=== PATIENT | female | born 1990 | race Caucasian/White ===

== ENCOUNTER 2017-03-23 11:08 | Emergency (ER) | payer OTHER ==
[~2017-03-23] VITALS: Ht 165.1 cm; Wt 87.3 kg
[~2017-03-23 11:08] MED LIST: ALBUTEROL SULF8.5 GM IH; ALLERGY MED; AURALGAN14.8 ML RIGHT EAR; BACTRIM,SEPT1 TABLET PO; CIPRO HC OTIC S10 ML RIGHT EAR; CYCLOBENZAPRINE10 MG PO; DIAZEPAM5 MG PO; DIFLUCAN100 MG PO; ENDOCET 5-3251 EACH; FLEXERIL10 MG PO; IBUPROFEN800 MG PO; KEFLEX500 MG PO; LEVOTHYROXINE25 MCG PO; LORTAB 5-500 T1 EACH PO; MACROBID100 MG PO; MOBIC15 MG PO; MOTRIN800 MG PO; MYCOSTATIN 100,60 ML PO; Motrin PO; NOHOMEMEDS; PERCOCET 5/31 TABLET PO; PREDNISONE20 MG PO; PROVENTIL,2.5 MG/3 M IH; ROXICET,PERCOCET5 ML PO; SYNTHROID50 MCG PO; TRAMADOL HCL50 MG PO; ULTRAM50 MG PO; VALIUM5 MG PO; VICODIN,LORT1 TABLET PO; ZITHROMAX500 MG PO; ZOFRAN ODT4 MG PO; ZOFRAN4 MG PO; ZYRTEC10 M2 PO
[2017-03-23 12:01] LABS: HEMATOCRIT 42.7 % (36.0-46.0); MCHC 34.2 G/DL (30.0-36.0); MCV 87.7 FL (83-99); MEAN PLAT.VOLUME 9.2 uM^3 (9.5-12.4); PLATELET COUNT 253 K/uL (156-360); RBC DIS.WIDTH-CV 12.3 % (11.8-14.6); RBC DIS.WIDTH-SD 39.5 % (39-53); RED BLOOD COUNT 4.87 M/uL (3.80-5.20); WHITE BLOOD COUNT 6.3 K/uL (4.1-10.2)
[2017-03-23 12:14] LABS: CHLORIDE 108 mEq/L (99-109); POTASSIUM 4.4 mEq/L (3.7-5.4); SODIUM 141 mEq/L (136-147)
[2017-03-23 12:17] LABS: GLUCOSE 92 mg/dL (70-99)
[2017-03-23 12:18] LABS: ANION GAP 11 MEQ/L (2-14); TOTAL BILIRUBIN 1.6 mg/dL (0.0-1.0)
[2017-03-23 12:20] LABS: ALKALINE PHOSPHATASE 87 IU/L (3-129); GFR ESTIMATE (CALCULATED) > 59 mL/min/
[2017-03-23 12:21] LABS: UREA NITROGEN (BUN) 12 mg/dL (9-23)
[2017-03-23 12:31] LABS: QUANTITATIVE HCG < 4.0 MIU/ML
[2017-03-23 12:53] LABS: LIPASE 14 U/L (1.0-51.0)
[2017-03-23 13:18] LABS: ADD MIUA? YES; BILIRUBIN NEGATIVE; BLOOD NEGATIVE; COLOR YELLOW ((YELLOW)); GLUCOSE (STRIP) NEGATIVE; KETONES 5; LEUKOCYTES SMALL; NITRITE NEGATIVE; PROTEIN (STRIP) NEGATIVE; UROBILINOGEN 0.2 MG/DL (0.2-1.0)
[2017-03-23 13:21] LABS: BACTERIA RARE /HPF; EPITHELIAL CELLS RARE /HPF; MUCUS TRACE /LPF; RED BLOOD CELLS 0-5 /HPF (0-5); UCUL ADDED? NO; WHITE BLOOD CELLS 0-5 /HPF (0-5)
[2017-03-23] MEDS ORDERED: ZOFRAN ODT4 MG PO (13:53)
[2017-03-23] MEDS ORDERED: BENTYL10 MG PO (13:53)
[2017-03-23 14:13] VITALS: BP 122/68
== END 2017-03-23 14:16 | disposition home or self-care (01) ==
LOC: EME 11:08
DX: R11.2 Nausea with vomiting, unspecified (principal); N89.8 Other specified noninflammatory disorders of vagina; E03.9 Hypothyroidism, unspecified; F17.200 Nicotine dependence, unspecified, uncomplicated
CPT/HCPCS: 80053; 81003; 83690; 84702; 85027; 99281; 99284

== ENCOUNTER 2017-12-20 06:41 | Day surgery (SDC) | payer OTHER ==
[~2017-12-20] VITALS: Ht 165.1 cm; Wt 78.0 kg
[~2017-12-20 06:41] MED LIST changes: +ADVIL,NUPRIN,M200 MG PO; +BENTYL10 MG PO; +MIRENA1 EACH IY; +SYMBICORT60 INHALAT IH; +TYLENOL EXTRA500 MG PO
[2017-12-20 07:43] VITALS: BP 88/49
[2017-12-20] MEDS ORDERED: ENDOCET 5-3251 EACH PO (09:06)
[2017-12-20 10:30] VITALS: BP 92/53
== END 2017-12-20 10:54 | disposition home or self-care (01) ==
LOC: SDC 06:41
DX: D06.7 Carcinoma in situ of other parts of cervix (principal); Z30.433 Encounter for removal and reinsertion of intrauterine contraceptive device; E03.9 Hypothyroidism, unspecified; F17.210 Nicotine dependence, cigarettes, uncomplicated
CPT/HCPCS: 88305; 88307; J0131; J0461; J1170; J1885; J2250; J2405; J3010

== ENCOUNTER 2018-01-01 19:56 | Emergency (ER) | payer OTHER ==
[~2018-01-01] VITALS: Ht 165.1 cm; Wt 80.8 kg
[~2018-01-01 19:56] MED LIST changes: +ENDOCET 5-3251 EACH PO
[2018-01-01 21:07] LABS: APPEARANCE CLOUDY ((CLEAR)); BILIRUBIN NEGATIVE; BLOOD LARGE; COLOR AMBER ((YELLOW)); GLUCOSE (STRIP) NEGATIVE; KETONES NEGATIVE; LEUKOCYTES MODERATE; NITRITE NEGATIVE; PROTEIN (STRIP) 30; SPECIFIC GRAVITY 1.033 (1.000-1.030)
[2018-01-01 21:12] LABS: HEMATOCRIT 42.2 % (36.0-46.0); HEMOGLOBIN 14.4 G/DL (11.9-15.5); MCH 30.8 PG (29.0-34.0); MCHC 34.1 G/DL (30.0-36.0); MCV 90.4 FL (83-99); PLATELET COUNT 279 K/uL (156-360); RBC DIS.WIDTH-CV 12.7 % (11.8-14.6); RBC DIS.WIDTH-SD 41.7 % (39-53); RED BLOOD COUNT 4.67 M/uL (3.80-5.20); WHITE BLOOD COUNT 7.5 K/uL (4.1-10.2)
[2018-01-01 21:20] LABS: CHLORIDE 111 mEq/L (99-109); POTASSIUM 4.1 mEq/L (3.7-5.4); SODIUM 141 mEq/L (136-147)
[2018-01-01 21:23] LABS: GLUCOSE 83 mg/dL (70-99); TOTAL PROTEIN 6.6 g/dL (6.4-8.3)
[2018-01-01 21:25] LABS: TOTAL BILIRUBIN 0.8 mg/dL (0.0-1.0)
[2018-01-01 21:26] LABS: ALKALINE PHOSPHATASE 76 IU/L (3-129); CREATININE 1.1 mg/dL (0.6-1.3); GFR ESTIMATE (CALCULATED) > 59 mL/min/
[2018-01-01 21:27] LABS: UREA NITROGEN (BUN) 14 mg/dL (9-23)
[2018-01-01 21:28] LABS: AST (GOT) 9 IU/L (2-34)
[2018-01-01 21:29] LABS: ALT (GPT) 18 IU/L (3-49)
[2018-01-01 21:33] LABS: AMPHETAMINE NEGATIVE (500 ng/mL); BARBITURATES NEGATIVE (200 ng/mL); BENZODIAZEPINES NEGATIVE (150 ng/mL); BUPRENORPHINE NEGATIVE (10 ng/mL); COCAINE PRESUMPTIVE POSITIVE (150 ng/mL); METHADONE NEGATIVE (200 ng/mL); METHAMPHETAMINE NEGATIVE (500 ng/mL); OPIATES (MORPHINE) NEGATIVE (100 ng/mL); OXYCODONE NEGATIVE (100 ng/mL); PHENCYCLIDINE NEGATIVE (25 ng/mL); PROPOXYPHENE NEGATIVE (300 ng/mL); THC CANNABINOIDS PRESUMPTIVE POSITIVE (50 ng/mL); TRICYCLIC ANTIDEPRESSANTS NEGATIVE (300 ng/mL)
[2018-01-01 21:35] LABS: BACTERIA 3+ /HPF; EPITHELIAL CELLS 3+ /HPF; MUCUS NONE SEEN /LPF; UCUL ADDED? YES; WHITE BLOOD CELLS 20-30 /HPF (0-5)
[2018-01-01 22:27] VITALS: BP 120/60
== END 2018-01-01 22:57 | disposition home or self-care (01) ==
LOC: EME 19:56
PROVIDERS: Emergency Medicine
DX: F32.9 Major depressive disorder, single episode, unspecified (principal); E03.9 Hypothyroidism, unspecified; F41.9 Anxiety disorder, unspecified; F17.200 Nicotine dependence, unspecified, uncomplicated; Z79.51 Long term (current) use of inhaled steroids; Z97.5 Presence of (intrauterine) contraceptive device; Z85.41 Personal history of malignant neoplasm of cervix uteri; Z98.890 Other specified postprocedural states; Z88.1 Allergy status to other antibiotic agents
CPT/HCPCS: 80053; 81003; 84999; 85027; 87086; 90839; 99281; 99285

== ENCOUNTER 2018-01-24 06:07 | Emergency (ER) | payer OTHER ==
[~2018-01-24] VITALS: Ht 165.1 cm; Wt 84.5 kg
[2018-01-24 06:58] LABS: BASOPHIL (%) 0.3 % (0-1); BASOPHIL COUNT 0.1 K/uL (0-0.1); EOSINOPHIL (%) 0.8 % (0-5); EOSINOPHIL COUNT 0.2 K/uL (0-0.3); HEMATOCRIT 38.4 % (36.0-46.0); IMMATURE GRANULOCYTE (%) 0.7 % (0.0-0.7); LYMPHOCYTE (%) 3.3 % (15-42); LYMPHOCYTE COUNT 0.8 K/uL (1.0-2.8); MCH 30.6 PG (29.0-34.0); MCHC 33.9 G/DL (30.0-36.0); MCV 90.4 FL (83-99); MONOCYTE (%) 3.5 % (3-12); MONOCYTE COUNT 0.8 K/uL (0-0.8); NEUTROPHIL (%) 91.4 % (45-76); NEUTROPHIL COUNT 20.6 K/uL (1.8-6.4); PLATELET COUNT 275 K/uL (156-360); RBC DIS.WIDTH-CV 12.5 % (11.8-14.6); RBC DIS.WIDTH-SD 41.5 % (39-53); RED BLOOD COUNT 4.25 M/uL (3.80-5.20); WHITE BLOOD COUNT 22.6 K/uL (4.1-10.2)
[2018-01-24 07:22] LABS: CHLORIDE 110 MEQ/L (99-109); POTASSIUM 3.6 MEQ/L (3.7-5.4); SODIUM 141 MEQ/L (136-147)
[2018-01-24 07:31] LABS: QUANTITATIVE HCG < 4.0 MIU/ML
[2018-01-24 08:35] LABS: GFR ESTIMATE (CALCULATED) > 59 mL/min/; GLUCOSE 148 mg/dL (70-99); SERUM ETHYL ALCOHOL < 10 mg/dL; UREA NITROGEN (BUN) 15 mg/dL (9-23)
[2018-01-24 09:56] LABS: APPEARANCE SL.HAZY ((CLEAR)); BILIRUBIN NEGATIVE; BLOOD NEGATIVE; COLOR YELLOW ((YELLOW)); GLUCOSE (STRIP) NEGATIVE; KETONES 20; LEUKOCYTES NEGATIVE; NITRITE NEGATIVE; PROTEIN (STRIP) 30; SPECIFIC GRAVITY 1.014 (1.000-1.030); UROBILINOGEN 0.2 MG/DL (0.2-1.0)
[2018-01-24 10:04] LABS: BACTERIA RARE /HPF; CALCIUM OXALATE CRYSTALS 1+ /HPF; EPITHELIAL CELLS RARE /HPF; HYALINE CASTS 0-5 /LPF; MUCUS TRACE /LPF; RED BLOOD CELLS 0-5 /HPF (0-5); WHITE BLOOD CELLS 0-5 /HPF (0-5)
[2018-01-24 10:06] LABS: AMPHETAMINE NEGATIVE (500 ng/mL); BARBITURATES NEGATIVE (200 ng/mL); BENZODIAZEPINES NEGATIVE (150 ng/mL); BUPRENORPHINE NEGATIVE (10 ng/mL); COCAINE PRESUMPTIVE POSITIVE (150 ng/mL); METHADONE NEGATIVE (200 ng/mL); METHAMPHETAMINE NEGATIVE (500 ng/mL); OPIATES (MORPHINE) NEGATIVE (100 ng/mL); OXYCODONE PRESUMPTIVE POSITIVE (100 ng/mL); PHENCYCLIDINE NEGATIVE (25 ng/mL); PROPOXYPHENE NEGATIVE (300 ng/mL); THC CANNABINOIDS PRESUMPTIVE POSITIVE (50 ng/mL); TRICYCLIC ANTIDEPRESSANTS NEGATIVE (300 ng/mL)
[2018-01-24 10:38] VITALS: BP 98/53
== END 2018-01-24 11:02 | disposition home or self-care (01) ==
LOC: EME 06:07
PROVIDERS: Emergency Medicine
DX: T40.601A Poisoning by unspecified narcotics, accidental (unintentional), initial encounter (principal); D72.829 Elevated white blood cell count, unspecified; Z85.41 Personal history of malignant neoplasm of cervix uteri; Z72.0 Tobacco use
CPT/HCPCS: 71045; 80048; 81003; 84702; 84999; 85025; 99281; 99285; G0480; J2310; J2405

== ENCOUNTER 2018-02-03 14:02 | Inpatient (IN) | payer OTHER ==
[~2018-02-03] VITALS: Ht 165.1 cm; Wt 80.4 kg
[2018-02-03 15:07] LABS: HEMATOCRIT 39.5 % (36.0-46.0); HEMOGLOBIN 13.4 G/DL (11.9-15.5); MCH 30.2 PG (29.0-34.0); MCHC 33.9 G/DL (30.0-36.0); MCV 89.2 FL (83-99); PLATELET COUNT 322 K/uL (156-360); RBC DIS.WIDTH-CV 12.4 % (11.8-14.6); RBC DIS.WIDTH-SD 40.9 % (39-53); RED BLOOD COUNT 4.43 M/uL (3.80-5.20)
[2018-02-03 15:15] LABS: ALBUMIN 4.4 g/dL (3.2-4.8); CHLORIDE 109 mEq/L (99-109); POTASSIUM 3.9 mEq/L (3.7-5.4); SODIUM 144 mEq/L (136-147)
[2018-02-03 15:17] LABS: GLUCOSE 87 mg/dL (70-99); TOTAL PROTEIN 7.6 g/dL (6.4-8.3)
[2018-02-03 15:20] LABS: SERUM ETHYL ALCOHOL < 10 mg/dL
[2018-02-03 15:21] LABS: ALKALINE PHOSPHATASE 89 IU/L (3-129); CREATININE 0.8 mg/dL (0.6-1.3); GFR ESTIMATE (CALCULATED) > 59 mL/min/
[2018-02-03 15:22] LABS: AST (GOT) 10 IU/L (2-34); UREA NITROGEN (BUN) 12 mg/dL (9-23)
[2018-02-03 15:24] LABS: ALT (GPT) 19 IU/L (3-49)
[2018-02-03 15:28] LABS: APPEARANCE SL.HAZY ((CLEAR)); BILIRUBIN NEGATIVE; BLOOD NEGATIVE; COLOR YELLOW ((YELLOW)); GLUCOSE (STRIP) NEGATIVE; KETONES 5; LEUKOCYTES NEGATIVE; NITRITE NEGATIVE; PROTEIN (STRIP) NEGATIVE; SPECIFIC GRAVITY 1.026 (1.000-1.030); UROBILINOGEN 0.2 MG/DL (0.2-1.0)
[2018-02-03 15:29] LABS: QUANTITATIVE HCG < 4.0 MIU/ML
[2018-02-03 15:37] LABS: AMPHETAMINE NEGATIVE (500 ng/mL); BARBITURATES NEGATIVE (200 ng/mL); BENZODIAZEPINES NEGATIVE (150 ng/mL); BUPRENORPHINE NEGATIVE (10 ng/mL); COCAINE PRESUMPTIVE POSITIVE (150 ng/mL); METHADONE NEGATIVE (200 ng/mL); METHAMPHETAMINE NEGATIVE (500 ng/mL); OPIATES (MORPHINE) NEGATIVE (100 ng/mL); OXYCODONE NEGATIVE (100 ng/mL); PHENCYCLIDINE NEGATIVE (25 ng/mL); PROPOXYPHENE NEGATIVE (300 ng/mL); THC CANNABINOIDS PRESUMPTIVE POSITIVE (50 ng/mL); TRICYCLIC ANTIDEPRESSANTS NEGATIVE (300 ng/mL)
[2018-02-03 15:58] LABS: BACTERIA NONE SEEN /HPF; EPITHELIAL CELLS RARE /HPF; MUCUS 1+ /LPF; RED BLOOD CELLS 0-5 /HPF (0-5); WHITE BLOOD CELLS 0-5 /HPF (0-5)
[2018-02-03] MEDS ORDERED: NEXPLANON68 MG SC (17:43)
[2018-02-03 18:19] VITALS: BP 108/66
[2018-02-03 18:28] VITALS: BP 108/66
[2018-02-04 07:27] VITALS: BP 82/46
[2018-02-04 11:46] VITALS: BP 100/53
[2018-02-04 15:19] VITALS: BP 106/50
[2018-02-05 07:24] VITALS: BP 95/54
[2018-02-05 16:03] VITALS: BP 126/53
[2018-02-06 07:30] VITALS: BP 94/50
[2018-02-06 15:34] VITALS: BP 101/52
[2018-02-07 08:43] VITALS: BP 83/46
[2018-02-07] MEDS ORDERED: BUPROPION XL150 MG PO (09:28)
[2018-02-07] MEDS ORDERED: GEODON40 MG PO (09:28)
== END 2018-02-07 10:53 | disposition home or self-care (01) | DRG 880 ==
LOC: EME 14:02 → EDOF 16:07 → 1WEST 16:07 → ENRESERV 17:25 → 1WEST 18:09
PROVIDERS: Emergency Medicine
DX: F41.8 Other specified anxiety disorders (principal); F11.10 Opioid abuse, uncomplicated; F14.10 Cocaine abuse, uncomplicated; F60.9 Personality disorder, unspecified; Z59.0 Homelessness; Z85.41 Personal history of malignant neoplasm of cervix uteri; Z81.8 Family history of other mental and behavioral disorders; R45.851 Suicidal ideations; F12.10 Cannabis abuse, uncomplicated; I51.7 Cardiomegaly; K08.89 Other specified disorders of teeth and supporting structures; M41.9 Scoliosis, unspecified
CPT/HCPCS: 80053; 81003; 84443; 84702; 84999; 85027; 90839; 97150 GO; 97165 GO; 99281; 99285; G0480